=== PATIENT | female | born 1965 | race Hispanic/Latino ===

== ENCOUNTER 2018-02-11 05:55 | Inpatient (IN) | payer BC, OTHER ==
[~2018-02-11] VITALS: Ht 149.9 cm; Wt 65.8 kg
[2018-02-11] MEDS ORDERED: ONDANSETRON HCL 4 MG/2 ML VIAL ONE (06:18)
[2018-02-11 06:20] LABS: BASOPHILS % (AUTO) 0.5 % (0.0-5.0); EOSINOPHILS % (AUTO) 3.7 % (0.0-8.0); HEMATOCRIT 43.4 % (36-48); LYMPHOCYTES % (AUTO) 29.9 % (21.0-51.0); MEAN CORPUSCULAR HEMOGLOBIN 29.2 pg (27.0-33.0); MEAN CORPUSCULAR VOLUME 88.6 fL (79-99); MONOCYTES % (AUTO) 8.6 % (3.0-13.0); NEUTROPHILS % (AUTO) 57.3 % (40.0-77.0); NUCLEATED RED BLOOD CELLS 0.1 % (0.0-0.19); PLATELET COUNT (AUTO) 292 K/uL (130-400); RED CELL DISTRIBUTION WIDTH 12.9 % (11.0-15.5); WHITE BLOOD COUNT (AUTO) 14.9 K/uL (4.8-10.8)
[2018-02-11] MEDS ORDERED: METOCLOPRAMIDE 10 MG/2 ML VIAL ONE (06:26)
[2018-02-11] MEDS ORDERED: PANTOPRAZOLE SODIUM 40 MG TABLET.DR PO ONE (06:26)
[2018-02-11 06:42] LABS: CREATININE 0.8 mg/dL (0.5-1.5); POTASSIUM 3.7 mmol/L (3.5-5.1)
[2018-02-11] MEDS ORDERED: MORPHINE SULFATE 4 MG/1ML SYG ONE ×2 (06:51→08:54)
[2018-02-11] MEDS ORDERED: DiphenhydrAMINE HCL 50 MG/ML VIAL ONE (06:51)
[2018-02-11 06:53] LABS: ALBUMIN 3.6 g/dL (3.5-5.0); TOTAL PROTEIN, SERUM 7.9 g/dL (6.0-8.3)
[2018-02-11 07:40] LABS: APPEARANCE,URINE Clear (CLEAR); BILIRUBIN,URINE Negative (NEGATIVE); COLOR,URINE Yellow (YELLOW); GLUCOSE, URINE (UA) Negative (NEGATIVE); KETONES,URINE Negative (NEGATIVE); LEUKOCYTE ESTERASE ,URINE Small (NEGATIVE); NITRATE,URINE Negative (NEGATIVE); OCCULT BLOOD,URINE Negative (NEGATIVE); PROTEIN,URINE Trace (NEGATIVE)
[2018-02-11 08:13] LABS: BACTERIA,URINE Few /HPF (None Seen); RBC,URINE 0-1 /HPF (0-1)
[2018-02-11] MEDS ORDERED: SODIUM CHLORIDE 0.9% 1000ML 1,000 ML IV ONE (08:52)
[2018-02-11] MEDS: LEVOFLOXACIN 500 MG/D5W 100 ML 100 ML IV SCH (10:00)
[2018-02-11] MEDS ORDERED: HYDROCODONE/ACETAMINOPHEN 5/325 MG TAB PO PRN (10:00)
[2018-02-11] MEDS ORDERED: LACTATED RINGERS 1000ML 1,000 ML IV ONE (10:19)
[2018-02-11] MEDS ORDERED: LEVOFLOXACIN 500 MG/D5W 100 ML 100 ML ONE (10:19)
[2018-02-11 11:55] VITALS: BP 131/74
[2018-02-11] MEDS: MORPHINE SULFATE 2 MG/ML 1ML SYG IV PRN ×2 (15:07→21:54)
[2018-02-11] MEDS: ONDANSETRON HCL MDV 20ML 2 MG/ML VIAL IVP PRN ×2 (15:07→21:53)
[2018-02-11 16:00] VITALS: BP 134/73
[2018-02-11 21:06] VITALS: BP 170/81
[2018-02-11] MEDS: LACTATED RINGERS 1000ML 1,000 ML IV SCH (23:24)
[2018-02-12] VITALS (7 sets, daily range): BP systolic 130–164; BP diastolic 60–83
[2018-02-12 05:16] LABS: BASOPHILS % (AUTO) 0.5 % (0.0-5.0); EOSINOPHILS % (AUTO) 1.3 % (0.0-8.0); HEMATOCRIT 36.6 % (36-48); LYMPHOCYTES % (AUTO) 20.1 % (21.0-51.0); MEAN CORPUSCULAR HGB CONC 33.8 g/dL (32.0-36.0); MEAN CORPUSCULAR VOLUME 88.7 fL (79-99); MONOCYTES % (AUTO) 7.1 % (3.0-13.0); NUCLEATED RED BLOOD CELLS 0.1 % (0.0-0.19); PLATELET COUNT (AUTO) 258 K/uL (130-400); RED BLOOD CELL COUNT(AUTO) 4.12 MIL/uL (4.00-5.50); RED CELL DISTRIBUTION WIDTH 13.5 % (11.0-15.5); WHITE BLOOD COUNT (AUTO) 10.2 K/uL (4.8-10.8)
[2018-02-12 05:26] LABS: INR 1.04 (0.85-1.15); PROTHROMBIN TIME 10.9 SEC (9.6-11.6)
[2018-02-12 05:35] LABS: ALBUMIN 2.8 g/dL (3.5-5.0); BILIRUBIN,TOTAL 0.8 mg/dL (0.2-1.0); CREATININE 0.5 mg/dL (0.5-1.5); POTASSIUM 3.1 mmol/L (3.5-5.1); TOTAL PROTEIN, SERUM 6.2 g/dL (6.0-8.3)
[2018-02-12] MEDS: LACTATED RINGERS 1000ML 1,000 ML IV SCH ×4 (06:13→20:55)
[2018-02-12] MEDS: ONDANSETRON HCL MDV 20ML 2 MG/ML VIAL IVP PRN ×3 (06:20→20:45)
[2018-02-12] MEDS: MORPHINE SULFATE 2 MG/ML 1ML SYG IV PRN ×2 (06:21→13:41)
[2018-02-12] MEDS: ENOXAPARIN SODIUM 30 MG/0.3 ML SQ SCH (09:00)
[2018-02-12] MEDS: PANTOPRAZOLE SODIUM 40 MG TABLET.DR PO SCH (09:09)
[2018-02-12] MEDS: LEVOFLOXACIN 500 MG/D5W 100 ML 100 ML IV SCH (09:09)
[2018-02-12] MEDS ORDERED: MORPHINE SULFATE 4 MG/1ML SYG ONE (20:41)
[2018-02-13 00:06] VITALS: BP 149/72
[2018-02-13 04:38] VITALS: BP 158/75
[2018-02-13 05:50] LABS: HEMATOCRIT 34.1 % (36-48); MEAN CORPUSCULAR HEMOGLOBIN 29.2 pg (27.0-33.0); MEAN CORPUSCULAR HGB CONC 33.5 g/dL (32.0-36.0); MEAN CORPUSCULAR VOLUME 87.2 fL (79-99); PLATELET COUNT (AUTO) 225 K/uL (130-400); RED BLOOD CELL COUNT(AUTO) 3.91 MIL/uL (4.00-5.50); RED CELL DISTRIBUTION WIDTH 13.1 % (11.0-15.5); WHITE BLOOD COUNT (AUTO) 11.2 K/uL (4.8-10.8)
[2018-02-13 06:01] LABS: CREATININE 0.5 mg/dL (0.5-1.5); POTASSIUM 3.1 mmol/L (3.5-5.1)
[2018-02-13] MEDS: LACTATED RINGERS 1000ML 1,000 ML IV SCH ×2 (06:05→20:45)
[2018-02-13 08:26] VITALS: BP 152/72
[2018-02-13] MEDS: LEVOFLOXACIN 500 MG/D5W 100 ML 100 ML IV SCH (10:42)
[2018-02-13] MEDS: ENOXAPARIN SODIUM 30 MG/0.3 ML SQ SCH (10:47)
[2018-02-13] MEDS: PANTOPRAZOLE SODIUM 40 MG TABLET.DR PO SCH (10:47)
[2018-02-13] MEDS: ONDANSETRON HCL MDV 20ML 2 MG/ML VIAL IVP PRN ×2 (10:48→23:36)
[2018-02-13] MEDS: MORPHINE SULFATE 4 MG/1ML SYG ONE ×2 (10:49→12:26)
[2018-02-13 12:06] VITALS: BP 146/79
[2018-02-13 16:34] VITALS: BP 168/69
[2018-02-13 19:00] VITALS: BP_SYST 147; BP_SYST 160; BP_DIAS 61; BP_DIAS 74
[2018-02-13] MEDS ORDERED: MORPHINE SULFATE 4 MG/1ML SYG ONE (23:30)
[2018-02-14] VITALS (21 sets, daily range): BP systolic 112–149; BP diastolic 56–83
[2018-02-14] MEDS: LACTATED RINGERS 1000ML 1,000 ML IV SCH ×3 (04:43→21:17)
[2018-02-14 05:13] LABS: HEMATOCRIT 32.3 % (36-48); MEAN CORPUSCULAR HEMOGLOBIN 30.4 pg (27.0-33.0); MEAN CORPUSCULAR HGB CONC 34.8 g/dL (32.0-36.0); MEAN CORPUSCULAR VOLUME 87.4 fL (79-99); PLATELET COUNT (AUTO) 258 K/uL (130-400); RED BLOOD CELL COUNT(AUTO) 3.69 MIL/uL (4.00-5.50); RED CELL DISTRIBUTION WIDTH 12.8 % (11.0-15.5); WHITE BLOOD COUNT (AUTO) 10.9 K/uL (4.8-10.8)
[2018-02-14 05:26] LABS: ALBUMIN 2.6 g/dL (3.5-5.0); BILIRUBIN,DIRECT 0.2 mg/dL (0.0-0.3); BILIRUBIN,TOTAL 0.7 mg/dL (0.2-1.0); CREATININE 0.5 mg/dL (0.5-1.5); POTASSIUM 3.2 mmol/L (3.5-5.1); TOTAL PROTEIN, SERUM 6.3 g/dL (6.0-8.3)
[2018-02-14 05:27] LABS: EOSINOPHILS % (MANUAL) 6 % (1-6); LYMPHOCYTES % (MANUAL) 18 % (22-44); MAN.DIFF COMMENT-IMPRESSION MANUAL DIFFERENTIAL; MONOCYTES % (MANUAL) 5 % (2-9); PLATELET MORPHOLOGY COMMENT ADEQUATE; SEGMENTED NEUTROPHILS % 71 % (40-70)
[2018-02-14] MEDS: PANTOPRAZOLE SODIUM 40 MG TABLET.DR PO SCH (09:00)
[2018-02-14] MEDS: ENOXAPARIN SODIUM 30 MG/0.3 ML SQ SCH (09:00)
[2018-02-14] MEDS: LEVOFLOXACIN 500 MG/D5W 100 ML 100 ML IV SCH (11:12)
[2018-02-14] MEDS ORDERED: LIDOCAINE PF 2% 5ML ABBOJECT ONE (11:18)
[2018-02-14] MEDS ORDERED: DEXAMETHASONE SOD PHOSPHATE 10MG/ML 1ML VIAL ONE (11:18)
[2018-02-14] MEDS ORDERED: GLYCOPYRROLATE 1 MG/5 ML SYRINGE ONE (11:19)
[2018-02-14] MEDS ORDERED: MIDAZOLAM HCL 1 MG/ML 2ML VIAL ONE (11:19)
[2018-02-14] MEDS ORDERED: PROPOFOL 10 MG/ML 20ML VIAL IV ONE (11:19)
[2018-02-14] MEDS ORDERED: ROCURONIUM 10MG/1ML SYR 10 MG/ML ML ONE (11:19)
[2018-02-14] MEDS ORDERED: NEOSTIGMINE 5MG/5ML SYR IV ONE (11:19)
[2018-02-14] MEDS ORDERED: FENTANYL CITRATE PF 50 MCG/1 ML 2ML VIAL ONE (11:25)
[2018-02-14] MEDS ORDERED: DURAMORPH PF1 MG/ML 10ML AMP IV ONE (11:25)
[2018-02-14] MEDS ORDERED: BUPIVACAINE/PF 0.5% 30ML VIAL ONE (11:34)
[2018-02-14] MEDS: ACETAMINOPHEN-CODEINE 300/30MG TAB PO PRN (20:42)
[2018-02-15 00:03] VITALS: BP 138/74
[2018-02-15] MEDS: LACTATED RINGERS 1000ML 1,000 ML IV SCH ×2 (00:33→03:24)
[2018-02-15 04:14] VITALS: BP 146/80
[2018-02-15 04:45] LABS: BASOPHILS % (AUTO) 0.1 % (0.0-5.0); HEMATOCRIT 32.2 % (36-48); LYMPHOCYTES % (AUTO) 14.3 % (21.0-51.0); MEAN CORPUSCULAR HEMOGLOBIN 29.6 pg (27.0-33.0); MEAN CORPUSCULAR HGB CONC 33.4 g/dL (32.0-36.0); MEAN CORPUSCULAR VOLUME 88.6 fL (79-99); MONOCYTES % (AUTO) 6.4 % (3.0-13.0); NEUTROPHILS % (AUTO) 79.2 % (40.0-77.0); NUCLEATED RED BLOOD CELLS 0.1 % (0.0-0.19); PLATELET COUNT (AUTO) 246 K/uL (130-400); RED BLOOD CELL COUNT(AUTO) 3.63 MIL/uL (4.00-5.50); RED CELL DISTRIBUTION WIDTH 12.9 % (11.0-15.5); WHITE BLOOD COUNT (AUTO) 9.8 K/uL (4.8-10.8)
[2018-02-15 04:46] LABS: CREATININE 0.5 mg/dL (0.5-1.5); POTASSIUM 3.9 mmol/L (3.5-5.1)
[2018-02-15 08:00] VITALS: BP 149/75
[2018-02-15] MEDS: ENOXAPARIN SODIUM 30 MG/0.3 ML SQ SCH (09:00)
[2018-02-15] MEDS: PANTOPRAZOLE SODIUM 40 MG TABLET.DR PO SCH (10:21)
[2018-02-15] MEDS: LEVOFLOXACIN 500 MG/D5W 100 ML 100 ML IV SCH (10:21)
[2018-02-15 12:00] VITALS: BP 139/77
[2018-02-15] MEDS: ACETAMINOPHEN-CODEINE 300/30MG TAB PO PRN (15:27)
[2018-02-15 16:00] VITALS: BP 147/84
== END 2018-02-15 18:30 | disposition home or self-care (01) | DRG 417 ==
LOC: EDH 05:55 → EDHIP 05:56 → 3BH 11:33
PROVIDERS: ADMIT Hospitalist; ATTEND Hospitalist
PROC: 0FT44ZZ Resection of Gallbladder, Percutaneous Endoscopic Approach (ICD-10-PCS; principal; 2018-02-14 12:38)
DX: K80.00 Calculus of gallbladder with acute cholecystitis without obstruction (principal); K85.90 Acute pancreatitis without necrosis or infection, unspecified; N39.0 Urinary tract infection, site not specified; B17.9 Acute viral hepatitis, unspecified; R74.8 Abnormal levels of other serum enzymes
CPT/HCPCS: 36415; 76700; 80048; 80053; 80076; 81001; 82150; 83690; 85025; 85027; 85610; 85730; 88304; 93005; J1100; J1200; J1650; J1956; J2001; J2250; J2270; J2274; J2405; J2704; J2710; J2765; J3010; J3490; J7030; J7120